=== PATIENT | male | born 1970 | race Caucasian/White ===

== ENCOUNTER 2021-11-18 08:36 | Emergency (ER) | payer OTHER ==
[2021-11-18 08:54] VITALS: BP 123/80; PULSE 76; TEMP 98.6; BMI 31.8
[2021-11-18] MEDS ORDERED: LIDOCAINE 5% TOPICAL PATCH TP ONE (10:13)
[2021-11-18] MEDS ORDERED: LIDOCAINE 5% TOPICAL PATCH ONE (10:21)
[2021-11-18] MEDS ORDERED: LIDOCAINE PATCH REMOVAL MC SCH (22:00)
== END 2021-11-18 10:30 | disposition home or self-care (01) ==
LOC: JER 08:36
DX: R07.89 Other chest pain (principal)
CPT/HCPCS: 71101-TC-RT-FY; 99284-25

== ENCOUNTER 2021-12-25 21:00 | Emergency (ER) | payer OTHER ==
[2021-12-25 21:29] VITALS: BP 120/82; PULSE 88; RESP 18; TEMP 98.1; BMI 31.8
[2021-12-25] MEDS ORDERED: DIPHTH,PERTUSS(ACELL),TET 0.5 ML DISP.SYRIN IM ONE ×2 (22:18→22:20)
== END 2021-12-25 22:43 | disposition home or self-care (01) ==
LOC: FER 21:00
PROC: 3E0234Z Introduction of Serum, Toxoid and Vaccine into Muscle, Percutaneous Approach (ICD-10-PCS; principal; 2021-12-25)
DX: S01.111A Laceration without foreign body of right eyelid and periocular area, initial encounter (principal); W21.220A Struck by ice hockey puck, initial encounter
CPT/HCPCS: 90471; 90715; 99284-25

== ENCOUNTER 2022-05-12 15:40 | Emergency (ER) | payer OTHER ==
[2022-05-12 16:06] VITALS: RESP 18; TEMP 98.3; BMI 32.3
[2022-05-12] MEDS ORDERED: IBUPROFEN 600 MG TABLET (FP) PO ONE ×2 (17:22→17:26)
[2022-05-12 17:42] LABS: BASO % 1.6 % (0-2.0); EOS % 3.7 % (0-4.5); HEMATOCRIT 44.3 % (35.4-49); HEMOGLOBIN 14.6 GM/dL (11.7-16.9); MCH 28.7 pg (25.7-33.7); MCHC 32.9 g/dl (32.0-35.9); MEAN CELL VOLUME 87.1 fl (80-96); MEAN PLT VOLUME 8.4 fl (7.5-11.1); NEUT % 48.7 % (42.8-82.8); PLATELET COUNT 251 10^3/uL (134-434); RBC 5.08 M/mm3 (4.00-5.60); WHITE BLOOD COUNT 6.6 K/mm3 (4.0-10.0)
[2022-05-12 18:04] LABS: CALCIUM 9.4 mg/dL (8.5-10.1)
[2022-05-12 18:05] LABS: ALBUMIN 3.8 g/dl (3.4-5.0); BLOOD UREA NITROGEN 17.4 mg/dL (7-18)
[2022-05-12 18:08] LABS: CREATININE 1.1 mg/dL (0.55-1.3)
[2022-05-12 18:10] LABS: BILIRUBIN,TOTAL 0.5 mg/dL (0.2-1); TOT PROT 7.3 g/dl (6.4-8.2)
[2022-05-12 19:23] VITALS: BP 133/82; PULSE 80
== END 2022-05-12 19:25 | disposition home or self-care (01) ==
LOC: JER 15:40
DX: R07.9 Chest pain, unspecified (principal)
CPT/HCPCS: 0241U-QW; 36415; 71046-TC-FY; 80053; 84484; 85025; 93005; 93010; 93308; 99285-25